=== PATIENT | female | born 1975 | race Two or more races ===

== ENCOUNTER 2021-03-13 03:55 | Emergency (ER) | payer SELFPAY ==
[~2021-03-13] VITALS: Ht 149.9 cm; Wt 71.4 kg
[2021-03-13] MEDS ORDERED: IV NORMAL SALINE 1000ML BAG 1,000 ML IV SCH (04:15)
[2021-03-13] MEDS ORDERED: MORPHINE SULFATE 2 MG/ML INJ. IV/SQ PRN (04:15)
--- NOTE | 2021-03-13 04:22 | PHYS DOC ---
Past Medical History Past Medical History: No Pertinent History, High Cholesterol, Hypertension (EUFEMIA HOFFMAN DO) Past Surgical History: No Surgical History (EUFEMIA HOFFMAN DO) Smoking Status: Never Smoker Alcohol Use: None Drug Use: None (EUFEMIA HOFFMAN DO) General Adult EDM: Chief Complaint: ABDOMINAL PAIN Problems: (1) RLQ abdominal pain (EUFEMIA HOFFMAN DO) HPI: HPI: 46-year-old female presents to the emergency department complaining of right lower quadrant abdominal pain for the past several days. She reports that when the pain started it was in the middle bottom of her abdomen and now it is located in the right lower quadrant with some radiation towards the back. She denies any palliative factors at home. She states that her pain got worse this evening and prompted her visit to the emergency department. She complains of lack of appetite. She denies any fever or chills. She states that she is currently on her menstrual cycle. Denies further radiation of pain from the right lower quadrant other than the back. She denies any urinary symptoms (EUFEMIA HOFFMAN DO) Review of Systems: Review of Systems: Constitutional: Denies fever or chills. Eyes: Denies change in vision, pain. HENT: Denies congestion or sore throat. Respiratory: Denies cough or shortness of breath. Cardiovascular: Denies chest pain or edema. GI: Admits to abdominal pain, denies vomiting, denies diarrhea, denies stool changes. : Denies change in urination, dysuria. Musculoskeletal: Denies extremity pain, or trauma. Skin: Denies rash, skin change. Neurologic: Denies headache, focal weakness. Psychiatric: Denies depression or anxiety. All other systems reviewed as negative except for what was mentioned in the HPI. (EUFEMIA HOFFMAN DO) Heart Score: C/O Chest Pain: No (EUFEMIA HOFFMAN DO) C/O Chest Pain: N/A (PASTORA JENSEN DO) Family History: Family History: Noncontributory (EUFEMIA HOFFMAN DO) Current Medications: My Orders - EUFEMIA HOFFMAN DO Procedure Category Date Status Time Vital Signs Monitoring ER 03/13/21 Transmitted 04:15 Blood Pressure ER 03/13/21 Transmitted Monitoring 04:15 Cardiac Monitoring ER 03/13/21 Transmitted 04:15 Cbc W [employer] LAB 03/13/21 Logged 04:15 Ua, Cult If Indicated LAB 03/13/21 Logged 04:15 Lipase LAB 03/13/21 Logged 04:15 Comprehensive LAB 03/13/21 Logged Metabolic Panel 04:15 Ct Abd Pelv W/ Iv CT 03/13/21 Logged Contrst Only 04:15 Urine Test KIMO 03/13/21 In Process 04:15 Morphine Sulfate PHA 03/13/21 Logged (Morphine Sulfate) 04:15 Iv Normal Saline PHA 03/13/21 Logged 1000ml Bag (Iv Sodium 04:15 Test,Urine LAB 03/13/21 Transmitted 04:20 (EUFEMIA HOFFMAN DO) Physical Exam: PE: Constitutional: Mild distress secondary to pain, nontoxic appearance. HENT: Atraumatic, bilateral external ears normal, nose normal. Eyes: PERRLA, EOMI, conjunctiva normal, no discharge. Neck: Normal range of motion, supple, no stridor. Cardiovascular: Heart rate regular rhythm. 2+ radial pulses Lungs & Thorax: No respiratory distress, symmetrical expansion. Bilateral breath sounds clear to auscultation Abdomen: Soft, nondistended, right lower quadrant tenderness to palpation Skin: Warm, dry. Extremities: No tenderness, no cyanosis, ROM intact, no edema. Neurologic: Alert and oriented X 3, normal motor function, normal sensory function, no focal deficits noted. Non ataxic gait. GCS 15. Psychologic: Affect normal, judgment normal, mood normal. (EUFEMIA HOFFMAN DO) Current Patient Data: Labs: Laboratory Tests Test 03/13/21 04:00 03/13/21 04:26 03/13/21 04:55 Urine Collection Type Unknown Urine Color Red Urine Clarity Bloody Urine pH 6.0 (<5.0-8.0) Urine Specific [place] >=1.030 (1.000-1.030) Urine Protein >=300 mg/dL (NEG-TRACE) Urine Glucose (UA) Negative mg/dL (NEG) Urine Ketones (Stick) 40 mg/dL (NEG) Urine Blood Large (NEG) Urine Nitrite Negative (NEG) Urine Bilirubin Negative (NEG) Urine Urobilinogen Dipstick 0.2 mg/dL (0.2 mg/dL) Urine Leukocyte Esterase Small (NEG) Urine RBC Tntc /HPF (0-2) Urine WBC >40 /HPF (0-4) Urine Squamous Epithelial Cells Few /LPF Urine Bacteria 0 /HPF (0-FEW) Urine Test Negative (NEG) White Blood Count 12.9 x10^3/uL (4.0-11.0) Red Blood Count 4.17 x10^6/uL (3.50-5.40) Hemoglobin 13.0 g/dL (12.0-15.5) Hematocrit 38.0 % (36.0-47.0) Mean Corpuscular Volume 91 fL (79-100) Mean Corpuscular Hemoglobin 31 pg (25-35) Mean Corpuscular Hemoglobin Concent 34 g/dL (31-37) Red Cell Distribution Width 15.2 % (11.5-14.5) Platelet Count 221 x10^3/uL (140-400) Neutrophils (%) (Auto) 75 % (31-73) Lymphocytes (%) (Auto) 13 % (24-48) Monocytes (%) (Auto) 10 % (0-9) Eosinophils (%) (Auto) 0 % (0-3) Basophils (%) (Auto) 1 % (0-3) Neutrophils # (Auto) 9.7 x10^3/uL (1.8-7.7) Lymphocytes # (Auto) 1.7 x10^3/uL (1.0-4.8) Monocytes # (Auto) 1.3 x10^3/uL (0.0-1.1) Eosinophils # (Auto) 0.0 x10^3/uL (0.0-0.7) Basophils # (Auto) 0.1 x10^3/uL (0.0-0.2) Sodium Level 138 mmol/L (136-145) Potassium Level 3.3 mmol/L (3.5-5.1) Chloride Level 101 mmol/L (98-107) Carbon Dioxide Level 26 mmol/L (21-32) Anion Gap 11 (6-14) Blood Urea Nitrogen 8 mg/dL (7-20) Creatinine 0.5 mg/dL (0.6-1.0) Estimated GFR (Cockcroft-Gault) 132.8 BUN/Creatinine Ratio 16 (6-20) Glucose Level 172 mg/dL (70-99) Calcium Level 8.3 mg/dL (8.5-10.1) Total Bilirubin 0.5 mg/dL (0.2-1.0) Aspartate Amino Transf (AST/SGOT) 26 U/L (15-37) Alanine Aminotransferase (ALT/SGPT) 70 U/L (14-59) Alkaline Phosphatase 75 U/L (46-116) Total Protein 6.8 g/dL (6.4-8.2) Albumin 3.3 g/dL (3.4-5.0) Albumin/Globulin Ratio 0.9 (1.0-1.7) Lipase 115 U/L (73-393) Vital Signs: Vital Signs Date Time Temp Pulse Resp B/P (MAP) Pulse Ox O2 Delivery O2 Flow Rate FiO2 03/13/21 04:54 13 93 Room Air 03/13/21 04:30 19 96 Room Air 03/13/21 04:00 98.9 81 14 174/86 96 Room Air 98.9 (EUFEMIA HOFFMAN DO) Radiology/Procedures: Impression: MPRESSION: * Complex cystic lesion of the right adnexa with one of the most common causes including hemorrhagic cyst with alternative causes such as cystic neoplasm such as cystadenoma or cystadenocarcinoma not excluded and follow-up could be obtained to ensure that there is appropriate regression in size. * 2 endometrial stripes at the fundus with thickening of the right endometrial stripe. This can be seen with mullerian ductal anomaly such as bicornuate. Follow-up could be obtained at a different point in the menstrual cycle to ensur e that there is appropriate thinning of the endometrium to exclude pathologic causes for this thickening such as hyperplasia, polyp or endometrial neoplasm. (PASTORA JENSEN DO) Course & Med Decision Making: Course & Med Decision Making CT scan was ordered due to concern for appendicitis. At the time of signout to Dr. Jensen, the patient is pending CT scan. Transfer care to Dr. Jensen at 0 600 (EUFEMIA HOFFMAN DO) Departure Departure Impression: Primary Impression: RLQ abdominal pain Additional Impression: Complex cyst of uterine adnexa Disposition: HOME / SELF CARE / HOMELESS Condition: STABLE Referrals: CORRINE MONTERROSO MD Patient Instructions: Abdominal Migraine, Pelvic Pain, Female Additional Instructions: You will need to follow up with [facility] for further evaluation of your US findings. Scripts Tramadol Hcl (ULTRAM) 50 Mg Tablet 1 TAB PO PRN Q6HRS PRN for pain MDD 4 Tablet(s) for 7 Days, #14 TAB 0 Refills Prov: PASTORA JENSEN DO 03/13/21 EUFEMIA HOFFMAN DO Mar 13, 2021 04:22 PASTORA JENSEN I DO Mar 13, 2021 08:31
[2021-03-13 04:37] LABS: BASO # 0.1 x10^3/uL (0.0-0.2); BASO % 1 % (0-3); EOS % 0 % (0-3); LYMPH # 1.7 x10^3/uL (1.0-4.8); LYMPH % 13 % (24-48); MEAN CORPUSCULAR HEMOGLOBIN 31 pg (25-35); MEAN CORPUSCULAR HGB CONC 34 g/dL (31-37); MEAN CORPUSCULAR VOLUME 91 fL (79-100); MONO # 1.3 x10^3/uL (0.0-1.1); MONO % 10 % (0-9); NEUT # 9.7 x10^3/uL (1.8-7.7); NEUT % 75 % (31-73); PLATELET COUNT 221 x10^3/uL (140-400); RED BLOOD COUNT 4.17 x10^6/uL (3.50-5.40); RED CELL DISTRIBUTION WIDTH 15.2 % (11.5-14.5); WHITE BLOOD COUNT 12.9 x10^3/uL (4.0-11.0)
[2021-03-13 04:38] LABS: BILIRUBIN,URINE NEGATIVE (NEG); CLARITY,URINE BLOODY; COLOR,URINE RED; NITRITE,URINE NEGATIVE (NEG); PROTEIN,URINE >=300 mg/dL (NEG-TRACE); UROBILINOGEN,URINE 0.2 mg/dL (0.2 mg/dL)
[2021-03-13 04:39] LABS: BACTERIA,URINE 0 /HPF (0-FEW); RBC,URINE TNTC /HPF (0-2); U PREG PATIENT NEGATIVE (NEG); WBC,URINE >40 /HPF (0-4)
[2021-03-13 05:17] LABS: CALCIUM 8.3 mg/dL (8.5-10.1); CREATININE 0.5 mg/dL (0.6-1.0); GFR 132.8; POTASSIUM 3.3 mmol/L (3.5-5.1)
[2021-03-13 05:23] LABS: ALBUMIN 3.3 g/dL (3.4-5.0); ALBUMIN/GLOBULIN RATIO 0.9 (1.0-1.7); TOTAL BILIRUBIN 0.5 mg/dL (0.2-1.0); TOTAL PROTEIN 6.8 g/dL (6.4-8.2)
[2021-03-13] MEDS ORDERED: IOHEXOL 300 MG/ML 100ML VIAL. IV ONE ×2 (05:45→06:30)
[2021-03-13] MEDS ORDERED: CONTRAST GIVEN. MC PRN (06:00)
--- NOTE | 2021-03-13 06:33 | RAD ---
Study: CT abdomen/pelvis with intravenous contrast Indication: Right lower quadrant pain. Comparison: None. Technique: Helical CT imaging performed of the abdomen and pelvis after the intravenous administratio n of 75 cc Omnipaque 300 contrast. Sagittal and coronal reformats were obtained. One or more of the following individualized dose reduction techniques were utilized for this examinat ion: 1. Automated exposure control 2. Adjustment of the mA and/or kV according to patient size 3. Use of iterative reconstruction technique. Findings: Unremarkable visualized lungs. Interval circumferential tearing of the distal esophageal wall could b e related to reflux. No CT manifestations of esophagitis. Diffuse hepatic steatosis. Mild hepatic enlargement. Surgically absent gallbladder. Prominence of the common duct favored reservoir effect. Unremarkable pancreas, spleen and adrenal glands. Symmetric re nal enhancement. No hydronephrosis. Unremarkable bladder. Bicornuate configuration of the uterus. Asymmetric prominence and heterogeneity of the right endometr ial limb measuring up to 3.9 cm compared to 1 cm of the left limb. Right lower quadrant cystic structure measuring 4.7 x 5.1 x 5.4 cm favored an ovarian cyst. Unremarka ble left adnexa. Numerous colonic diverticuli without diverticulitis. Normal appendix. Nonobstructed small bowel. Unre markable stomach. Mild atheromatous plaque. No lymphadenopathy. There may be a tiny amount of free pelvic fluid. No acute or aggressive osseous process. Impression: 1. Bicornuate configuration of the uterus. Significant asymmetric prominence and heterogeneity of th e right endometrial limb relative to the left. Ultrasound is recommended to better characterize and a ssess for a mass or other abnormality. 2. Cyst at the right lower quadrant measuring up to 5.4 cm favored ovarian in origin. This is withou t complex features but could also be further characterized with ultrasound. 3. Hepatic steatosis. Electronically signed by: PHILOMENA LEVIN MD (03/13/2021 6:31 AM) [facility]
[2021-03-13 07:10] VITALS: BP 148/67
--- NOTE | 2021-03-13 08:19 | RAD ---
INDICATION: Reason: abnormal uterus on CT radiologist recommendation for futher eval / Spl. Instructi ons: / History: Pelvic pain COMPARISON: March 13, 2021 CT TECHNIQUE: Grayscale and color ultrasound images uterus and adnexa. Transabdominal and transvaginal images obtained. Transvaginal images were needed to better visualize structures that were limited on transabdominal imaging. FINDINGS: Uterus: 120 x 96 x 64 mm. 2 endometrial stripes are identified with the right measuring 31 mm and left 10 mm. Right Ovary: 65 x 60 x 56 mm. Left Ovary: 27 x 16 x 13 mm. Vascular flow identified to bilateral ovaries. Complex hypoechoic lesion of the right adnexa measuring 52 x 48 mm. Small free fluid in the pelvis. Suspected nabothian cyst. IMPRESSION: * Complex cystic lesion of the right adnexa with one of the most common causes including hemorrhagi c cyst with alternative causes such as cystic neoplasm such as cystadenoma or cystadenocarcinoma not excluded and follow-up could be obtained to ensure that there is appropriate regression in size. * 2 endometrial stripes at the fundus with thickening of the right endometrial stripe. This can be s een with mullerian ductal anomaly such as bicornuate. Follow-up could be obtained at a different poin t in the menstrual cycle to ensure that there is appropriate thinning of the endometrium to exclude p athologic causes for this thickening such as hyperplasia, polyp or endometrial neoplasm. Electronically signed by: Graeme Davis MD (03/13/2021 8:16 AM) [id number]
[2021-03-13] MEDS ORDERED: TRAM-48 PO (08:35)
== END 2021-03-13 09:30 | disposition home or self-care (01) ==
LOC: ER 03:55
DX: N83.8 Other noninflammatory disorders of ovary, fallopian tube and broad ligament (principal); R10.31 Right lower quadrant pain; E78.00 Pure hypercholesterolemia, unspecified; I10 Essential (primary) hypertension
CPT/HCPCS: 36415; 74177; 76830; 76856; 80053; 81001; 81025; 83690; 85025; 87086; 96361; 96374; 99285; J2270; J7030; Q9967

== ENCOUNTER → 2021-03-15 | Outpatient (CLI) | payer SELFPAY ==
[2021-03-13 07:10] VITALS: BP 148/67
[~2021-03-15] MED LIST: TRAM-48 PO
[2021-03-15 22:11] LABS: AFPT MARKER 2.8 ng/mL (0.0-8.3); CA 125 331.2 U/mL (0.0-38.1)
[2021-03-16 13:14] LABS: CEA 1.8 ng/mL (0.0-4.7)
== END ==
LOC: LAB 10:10
PROVIDERS: ATTEND Obstetrics & Gynecology
DX: N83.209 Unspecified ovarian cyst, unspecified side (principal)
CPT/HCPCS: 36415; 82105; 82378; 83615; 84702; 86304